=== PATIENT | male | born 1975 | race American Indian/Alaskan Native ===

== ENCOUNTER 2018-08-18 12:37 | Emergency (ER) | payer SELFPAY ==
[2018-08-18 12:52] VITALS: BP 121/82
--- NOTE | 2018-08-18 13:13 | Emergency Department Report ---
Chief Complaint: Dental/Oral Stated Complaint: HARD TO SWALLOW Time Seen by Provider: 08/18/18 13:07 - HPI History of Present Illness: Mr. Sow is a pleasant 43-year-old male who presents with sore under his tongue. No trauma. No burning. On brief examination patient has a small aphthous ulcer under the right side of his tongue, given supportive care. Medical screening examperformed. He does not have a life or limb threatening emergency which requires acute emergent treatment or further evaluation. Medical screening exam was performed. - Exam Vital Signs: Vital Signs 08/18/18 12:51 Temperature 97.8 F Pulse Rate 75 Respiratory 18 Rate Blood Pressure 121/82 O2 Sat by Pulse 98 Oximetry MSE screening note: Focused history and physical exam performed. Due to findings the following was ordered: ED Disposition for MSE Clinical Impression: Aphthous ulcer of mouth Disposition: MED SCREENING EXAM-LEFT Is pt being admited?: No Does the pt Need Aspirin: No Condition: Stable Instructions: Iman Hidalgo (ED)
== END 2018-08-18 13:25 | disposition left against medical advice (07) ==
LOC: ED 12:37
DX: K12.0 Recurrent oral aphthae (principal)
CPT/HCPCS: 99281